=== PATIENT | female | born 1985 | race Two or more races ===

== ENCOUNTER 2022-02-24 19:56 | Emergency (ER) | payer OTHER ==
[~2022-02-24] VITALS: Ht 165.1 cm; Wt 79.5 kg
[2022-02-24 20:53] VITALS: BP 129/89
[2022-02-24 21:23] LABS: Basophils # (auto) 0.2 10 ^3/uL (0-0.2); Basophils % (auto) 1.8 % (0.0-2.0); Eosinophils # (auto) 0.2 10 ^3/uL (0-0.8); Eosinophils % (auto) 2.1 % (0.0-7.0); Hemoglobin 12.5 g/dL (12.2-16.2); Lymphocytes # (auto) 2.3 10 ^3/uL (0.4-5.4); Lymphocytes % (auto) 25.3 % (10.0-50.0); Mean Corpuscular Hemoglobin 27.7 pg (28.0-32.0); Mean Corpuscular Volume 83.7 fL (80.0-100.0); Monocytes # (auto) 0.3 10 ^3/uL (0-1.3); Monocytes % (auto) 3.4 % (0.0-12.0); Neutrophils # (auto) 6.2 10 ^3/uL (1.6-8.6); Neutrophils % (auto) 67.4 % (37.0-80.0); Nucleated Red Blood Cells % 0.2 %; Red Blood Cells 4.54 10^6/uL (4.0-5.20); Red Cell Distribution Width 14.8 % (11.8-14.3); White Blood Cell 9.1 10^3/uL (4.4-10.8)
[2022-02-24 21:38] LABS: Albumin 3.9 g/dL (3.4-5.0); BUN/Creatinine Ratio 12.3; Calcium 8.3 mg/dL (8.5-10.1); Potassium 4.4 mmol/L (3.5-5.1)
[2022-02-24 21:41] LABS: Bilirubin, Total 0.2 mg/dL (0.2-1.0); Total Protein 7.3 g/dL (6.4-8.2)
[2022-02-24 22:01] LABS: Urine Bacteria FEW /hpf (None Seen); Urine Blood Negative /uL (Negative); Urine Mucus FEW (None Seen); Urine Specific Gravity 1.021 (1.001-1.035); Urine WBC 1 /hpf (0 - 5)
== END 2022-02-25 00:19 | disposition home or self-care (01) ==
LOC: ER 19:56
DX: O20.0 Threatened abortion (principal); Z3A.01 Less than 8 weeks gestation of pregnancy
CPT/HCPCS: 36415; 76801; 76817; 80053; 81001; 84702; 85025

== ENCOUNTER 2022-02-26 13:27 | Emergency (ER) | payer OTHER ==
[~2022-02-26] VITALS: Ht 165.1 cm; Wt 76.8 kg
[2022-02-26 13:38] VITALS: BP 115/76
== END 2022-02-26 18:22 | disposition home or self-care (01) ==
LOC: ER 13:27
DX: O20.0 Threatened abortion (principal); Z88.0 Allergy status to penicillin; Z3A.01 Less than 8 weeks gestation of pregnancy
CPT/HCPCS: 36415; 84702

== ENCOUNTER 2022-03-08 12:34 | Emergency (ER) | payer OTHER ==
[~2022-03-08] VITALS: Ht 165.1 cm; Wt 77.3 kg
[2022-03-08 13:10] VITALS: BP 125/78
[2022-03-08 13:42] LABS: Urine Bacteria FEW /hpf (None Seen); Urine Blood 3+ /uL (Negative); Urine Mucus FEW (None Seen); Urine Specific Gravity 1.029 (1.001-1.035); Urine WBC 1 /hpf (0 - 5)
[2022-03-08 13:58] LABS: Basophils # (auto) 0.1 10 ^3/uL (0-0.2); Basophils % (auto) 0.6 % (0.0-2.0); Eosinophils # (auto) 0 10 ^3/uL (0-0.8); Eosinophils % (auto) 0.5 % (0.0-7.0); Hematocrit 38.7 % (36.0-46.0); Hemoglobin 13.1 g/dL (12.2-16.2); Lymphocytes % (auto) 21.8 % (10.0-50.0); Mean Corpuscular Hemoglobin 27.5 pg (28.0-32.0); Mean Corpuscular Hgb Conc. 33.9 g/dL (32.0-36.0); Mean Corpuscular Volume 81.3 fL (80.0-100.0); Monocytes # (auto) 0.5 10 ^3/uL (0-1.3); Monocytes % (auto) 5.3 % (0.0-12.0); Neutrophils # (auto) 6.6 10 ^3/uL (1.6-8.6); Neutrophils % (auto) 71.8 % (37.0-80.0); Red Blood Cells 4.76 10^6/uL (4.0-5.20); Red Cell Distribution Width 14.7 % (11.8-14.3); White Blood Cell 9.1 10^3/uL (4.4-10.8)
== END 2022-03-08 15:55 | disposition home or self-care (01) ==
LOC: ER 12:34
DX: O20.0 Threatened abortion (principal); Z3A.01 Less than 8 weeks gestation of pregnancy
CPT/HCPCS: 36415; 76801; 76817; 81001; 84702; 85025

== ENCOUNTER 2022-03-17 16:27 | Inpatient (IN) | payer OTHER ==
[2022-03-17] MEDS ORDERED: SODIUM CHLORIDE 0.9% 1,000 ML IV ONE (18:15)
[2022-03-17 18:58] LABS: Basophils # (auto) 0 10 ^3/uL (0-0.2); Basophils % (auto) 0.1 % (0.0-2.0); Eosinophils # (auto) 0 10 ^3/uL (0-0.8); Eosinophils % (auto) 0.4 % (0.0-7.0); Hematocrit 25.5 % (36.0-46.0); Hemoglobin 8.7 g/dL (12.2-16.2); Lymphocytes # (auto) 2.1 10 ^3/uL (0.4-5.4); Lymphocytes % (auto) 16.3 % (10.0-50.0); Mean Corpuscular Hemoglobin 28.2 pg (28.0-32.0); Mean Corpuscular Hgb Conc. 34.1 g/dL (32.0-36.0); Mean Corpuscular Volume 82.7 fL (80.0-100.0); Monocytes # (auto) 0.5 10 ^3/uL (0-1.3); Monocytes % (auto) 4.1 % (0.0-12.0); Neutrophils # (auto) 10.3 10 ^3/uL (1.6-8.6); Neutrophils % (auto) 79.1 % (37.0-80.0); Red Blood Cells 3.08 10^6/uL (4.0-5.20); Red Cell Distribution Width 14.8 % (11.8-14.3)
[2022-03-17 19:08] LABS: Albumin 3.2 g/dL (3.4-5.0); BUN/Creatinine Ratio 16.4; Calcium 8.3 mg/dL (8.5-10.1); Potassium 3.4 mmol/L (3.5-5.1)
[2022-03-17 19:11] LABS: Bilirubin, Total 0.2 mg/dL (0.2-1.0); INR 0.99 (0.9-1.15); Partial Thromboplastin Time < 20.0 sec (24.6-33.4); Total Protein 6.2 g/dL (6.4-8.2)
[2022-03-17] MEDS ORDERED: LACTATED RINGER'S 1,000 ML IV ONE (20:00)
[2022-03-17] MEDS ORDERED: LACT. RINGERS/OXYTOCIN 20UNITS 1,000 ML IV ONE (20:15)
[2022-03-17] MEDS ORDERED: FER325T PO ×2 (20:36)
[2022-03-17] MEDS ORDERED: IBUP800T27 PO (20:36)
[2022-03-17] MEDS ORDERED: PROPOFOL 10 MG/ML 20 ML IV ONE ×2 (20:59→21:05)
[2022-03-17] MEDS ORDERED: GLYCOPYRROLATE 0.2 MG/ML 1ML VIAL ONE (20:59)
[2022-03-17] MEDS ORDERED: LIDOCAINE 2% (LOCAL ANESTH.) PF 5ml SDV ONE (20:59)
[2022-03-17] MEDS ORDERED: ONDANSETRON HCL 4 MG/2 ML VIAL ONE (20:59)
[2022-03-17] MEDS ORDERED: DexAMETHasone SOD PHOS 10MG/1ML VIAL INJ ONE (20:59)
[2022-03-17] MEDS ORDERED: KETOROLAC TROMETH 30 MG/ML 1ML VIAL ONE (20:59)
[2022-03-17] MEDS ORDERED: ceFAZolin 1GM VL ONE (20:59)
[2022-03-17] MEDS ORDERED: SODIUM CHLORIDE LOCK 10 ML ONE ×2 (20:59→21:09)
[2022-03-17] MEDS ORDERED: PHENYLEPHRINE HCL 10 MG/ML VL ONE (21:09)
[2022-03-17] MEDS ORDERED: ONDANSETRON HCL 4 MG/2 ML VIAL IV PRN (21:15)
[2022-03-17] MEDS ORDERED: RHO (D) IMMUNE GLOBULIN 300 MCG INJ IM PRN (21:30)
[2022-03-17 22:00] VITALS: BP 117/70
[2022-03-17] MEDS ORDERED: PIPERACILLIN-TAZOB 3.375GM 100 ML IV SCH (22:00)
[2022-03-17] MEDS ORDERED: MEROPENEM 1GM IVPB 100 ML IV SCH (22:15)
== END 2022-03-17 22:15 | disposition home or self-care (01) | DRG 770 ==
LOC: ER 16:27 → EDBD 16:27 → OVERFLOW 21:09
PROVIDERS: ADMIT Nurse Practitioner Family; ATTEND Nurse Practitioner Family
PROC: 10D17ZZ Extraction of Products of Conception, Retained, Via Natural or Artificial Opening (ICD-10-PCS; principal; 2022-03-17 20:58)
DX: O03.4 Incomplete spontaneous abortion without complication (principal); E83.51 Hypocalcemia; E87.6 Hypokalemia; O99.019 Anemia complicating pregnancy, unspecified trimester; Z20.822 Contact with and (suspected) exposure to COVID-19; Z3A.08 8 weeks gestation of pregnancy; Z88.0 Allergy status to penicillin
CPT/HCPCS: 36415; 76801; 76817; 80053; 84702; 85025; 85610; 85730; 86850; 86900; 86901; 86920; 87426; 96360; G0378; J0690; J1100; J1885; J2001; J2405; J2590; J2704

== ENCOUNTER 2022-03-19 12:17 | Emergency (ER) | payer OTHER ==
[2022-03-19] VITALS (8 sets, daily range): BP systolic 97–110; BP diastolic 44–68
[~2022-03-19] VITALS: Ht 165.1 cm; Wt 54.5 kg
[~2022-03-19 12:17] MED LIST: FER325T PO; IBUP800T27 PO
[2022-03-19 13:18] LABS: Basophils # (auto) 0 10 ^3/uL (0-0.2); Eosinophils # (auto) 0.1 10 ^3/uL (0-0.8); Mean Corpuscular Hemoglobin 28.3 pg (28.0-32.0); Red Blood Cells 2.45 10^6/uL (4.0-5.20)
[2022-03-19 13:20] LABS: Basophils % (auto) 0.1 % (0.0-2.0); Eosinophils % (auto) 0.7 % (0.0-7.0); Hematocrit 20.1 % (36.0-46.0); Lymphocytes % (auto) 25.9 % (10.0-50.0); Mean Corpuscular Hgb Conc. 34.5 g/dL (32.0-36.0); Monocytes # (auto) 0.6 10 ^3/uL (0-1.3); Monocytes % (auto) 7.6 % (0.0-12.0); Neutrophils # (auto) 5.2 10 ^3/uL (1.6-8.6); Neutrophils % (auto) 65.7 % (37.0-80.0); White Blood Cell 7.9 10^3/uL (4.4-10.8)
[2022-03-19 13:35] LABS: Urine Bacteria FEW /hpf (None Seen); Urine Blood 3+ /uL (Negative); Urine Specific Gravity 1.023 (1.001-1.035); Urine WBC 4 /hpf (0 - 5)
[2022-03-19 13:40] LABS: Albumin 3.1 g/dL (3.4-5.0); Calcium 8.4 mg/dL (8.5-10.1)
[2022-03-19 13:44] LABS: BUN/Creatinine Ratio 18.8; Bilirubin, Total 0.2 mg/dL (0.2-1.0)
[2022-03-19 14:06] LABS: Hemoglobin 6.9 g/dL (12.2-16.2)
[2022-03-19] MEDS ORDERED: ACETAMINOPHEN 325 MG TAB PO ONE (20:00)
[2022-03-19] MEDS ORDERED: METHYLERGONOVINE MALEATE 0.2 MG/ML AMP IM ONE (21:30)
[2022-03-19] MEDS ORDERED: MORPHINE SULFATE INJ 2 MG/ml SYRG IV ONE (23:45)
[2022-03-19] MEDS ORDERED: ONDANSETRON HCL 4 MG/2 ML VIAL IV ONE (23:45)
[2022-03-20 00:49] LABS: Hemoglobin 7.5 g/dL (12.2-16.2)
[2022-03-20 00:51] LABS: Hematocrit 21.8 % (36.0-46.0)
[2022-03-20] MEDS ORDERED: METH-822 OR (02:08)
[2022-03-20 02:10] VITALS: BP 109/54
== END 2022-03-20 02:08 | disposition home or self-care (01) ==
LOC: ER 12:17
DX: S09.90XA Unspecified injury of head, initial encounter (principal); M62.838 Other muscle spasm; D64.9 Anemia, unspecified; E46 Unspecified protein-calorie malnutrition; Z68.20 Body mass index [BMI] 20.0-20.9, adult; W22.8XXA Striking against or struck by other objects, initial encounter; Y93.89 Activity, other specified; Y92.89 Other specified places as the place of occurrence of the external cause; Y99.8 Other external cause status
CPT/HCPCS: 36415; 36430; 70450; 72125; 76801; 80053; 81001; 85014; 85018; 85025; 86850; 86900; 86901; 86920; 93005; 96372; 96374; 96375; 99285; J2210; J2270; J2405; J7030; P9016

== ENCOUNTER 2023-10-24 01:39 | Emergency (ER) | payer OTHER ==
[~2023-10-24] VITALS: Ht 162.6 cm; Wt 77.3 kg
[~2023-10-24 01:39] MED LIST changes: +IBUP-1456 PO; -IBUP800T27 PO; +METH-822 OR
[2023-10-24 02:24] LABS: Basophils # (auto) 0 10 ^3/uL (0-0.2); Basophils % (auto) 0.2 % (0.0-2.0); Eosinophils # (auto) 0 10 ^3/uL (0-0.8); Eosinophils % (auto) 0.5 % (0.0-7.0); Hematocrit 37.8 % (36.0-46.0); Lymphocytes # (auto) 1.2 10 ^3/uL (0.4-5.4); Lymphocytes % (auto) 13.9 % (10.0-50.0); Mean Corpuscular Hemoglobin 29.8 pg (28.0-32.0); Mean Corpuscular Hgb Conc. 34.2 g/dL (32.0-36.0); Mean Corpuscular Volume 87.1 fL (80.0-100.0); Monocytes # (auto) 0.4 10 ^3/uL (0-1.3); Monocytes % (auto) 4.7 % (0.0-12.0); Neutrophils # (auto) 7.2 10 ^3/uL (1.6-8.6); Neutrophils % (auto) 80.7 % (37.0-80.0); Red Blood Cells 4.34 10^6/uL (4.0-5.20); Red Cell Distribution Width 12.6 % (11.8-14.3)
[2023-10-24 02:35] VITALS: PULSE 79; RESP 13; O2SAT 98
[2023-10-24] MEDS: KETOROLAC TROMETH 30 MG/ML 1ML VIAL IV ONE (02:35)
[2023-10-24] MEDS: SODIUM CHLORIDE 0.9% 1,000 ML IVB ONE (02:36)
[2023-10-24 02:39] LABS: Chloride 104 mmol/L (98-107); Potassium 4.1 mmol/L (3.5-5.1); Sodium 139 mmol/L (136-145)
[2023-10-24 02:40] LABS: Anion Gap 10 (5-15); Calcium 9.5 mg/dL (8.7-10.4); Carbon Dioxide 25 mmol/L (20-30)
[2023-10-24 02:41] LABS: Urine Bacteria None Seen /hpf (None Seen)
[2023-10-24 02:45] LABS: BUN/Creatinine Ratio 15.5 (10.0-20.0); Blood Urea Nitrogen 13 mg/dL (9-23); Glucose 114 mg/dL (74-106)
[2023-10-24 02:57] LABS: Urine Blood Negative /uL (Negative); Urine Clarity Clear (Clear); Urine Color Yellow (Yellow); Urine Mucus FEW (None Seen); Urine Protein, UAD TRACE (Negative); Urine Specific Gravity 1.034 (1.001-1.035); Urine Urobilinogen Normal (Negative); Urine WBC 2 /hpf (0 - 5)
[2023-10-24] MEDS ORDERED: IBUP-1455 PO (04:52)
[2023-10-24] MEDS ORDERED: ZOFR4T PO (04:52)
[2023-10-24 05:19] VITALS: TEMP 98.7
[2023-10-24 05:24] VITALS: PULSE 79; RESP 13; O2SAT 98
[2023-10-24 05:51] VITALS: BP 127/79; PULSE 72; RESP 16; O2SAT 98
== END 2023-10-24 05:54 | disposition home or self-care (01) ==
LOC: ER 01:39 → EDBD 01:39 → ER 05:54
DX: N20.0 Calculus of kidney (principal); M79.7 Fibromyalgia; Z88.0 Allergy status to penicillin; Z79.899 Other long term (current) drug therapy
CPT/HCPCS: 36415; 74176; 80048; 81001; 81025; 85025; 96361; 96374; 99285; J1885; J7030